=== PATIENT | male | born 1940 | race Caucasian/White ===

== ENCOUNTER → 2024-08-29 14:41 | Outpatient (REF) | payer OTHER, SELFPAY | LOC: HWRCS 14:41 | PROVIDERS: ATTENDING PHYSICIAN Internal Medicine Cardiovascular Disease; FAMILY PHYSICIAN Physician Assistant Medical | DX: R94.31 Abnormal electrocardiogram [ECG] [EKG] (principal) | CPT/HCPCS: 93306 ==

== ENCOUNTER 2024-09-10 06:20 | Day surgery (SDC) | payer OTHER, SELFPAY ==
[2024-08-21 13:07] VITALS: BMI 30.5
[2024-08-21 14:30] LABS: Hemoglobin 16.7 g/dL (13.0-18.0); Mean Corp Hgb Conc. 34.1 g/dL (33.0-37.0); Mean Corpuscular Hgb 29.7 pg (27.0-31.0); Mean Corpuscular Volume 87.2 fL (80.0-94.0); Mean Platelet Volume 10.5 fL (7.4-10.4); Platelet Count 206 10^3/uL (130-400); Red Blood Cell Count 5.62 10^6/uL (4.70-6.10); Red Cell Dist. Width 13.9 % (11.5-14.5); White Blood Cell Count 10.7 10^3/uL (4.8-10.8)
[2024-08-21 14:43] LABS: ALT (SGPT) 22 U/L (0-50); AST (SGOT) 23 U/L (17-59); Albumin 4.3 g/dl (3.5-5.0); Alkaline Phosphatase 71 U/L (38-126); Blood Urea Nitrogen 20 mg/dl (9-20); Calcium 10.1 mg/dl (8.4-10.2); Carbon Dioxide 27 mmol/L (22-30); Chloride 104 mmol/L (98-107); Estimated Creatinine Clearance 70 ml/min; Glucose 85 mg/dl (70-99); Potassium 4.6 mmol/L (3.5-5.1); Sodium 141 mmol/L (135-145); Total Bilirubin 0.4 mg/dl (0.2-1.3); Total Protein 6.4 g/dl (6.3-8.2); eGFR > 60.00
[2024-08-22 07:34] LABS: Glycohemoglobin (HgbA1c) 5.4 % (4.0-5.6)
--- NOTE | 2024-08-27 12:03 | VNURNOTE ---
Patient is scheduled for an elective L TKA on 09/10/[address] Mo- he is a same day patient. Spoke with patient prior to surgery. Introduced role of [facility] liaison.
Patient reports that he lives with his in a 1 story home.
There are 2 steps to enter
He has a cane and rolling walker.
He had [facility] services after his prior [facility].
PCP is Dr Chandra Montero
Discussed orthopedic program and post surgical plans. Advised patient to bring rolling walker day of surgery.
Reviewed that he will have [facility] services initially and will then start outpatient PT.
Patient selects [facility] for his home care needs and will go to PT at [facility] for outpatient PT- appt scheduled for 09/13.
[facility] referral placed in [facility].
Patient is in agreement with plan and states that his will be home with him.
Plan: [facility] nursing and PT per [facility] joint protocol then outpt PT at [facility] on 09/13
[2024-09-10] VITALS (12 sets, daily range): BP systolic 116–163; BP diastolic 53–86; PULSE 86; O2SAT 98; BMI 30.5
[2024-09-10] MEDS: CELEBREX 200 MG PO (07:13)
[2024-09-10] MEDS: TYLENOL 650 MG PO ×2 (07:14→13:15)
[2024-09-10] MEDS: ANCEF 5 IV (12:29)
== END 2024-09-10 13:17 | disposition home or self-care (01) ==
LOC: SDS 06:20
PROVIDERS: ATTENDING PHYSICIAN Specialist; FAMILY PHYSICIAN Physician Assistant Medical
DX: M17.12 Unilateral primary osteoarthritis, left knee (principal); M06.9 Rheumatoid arthritis, unspecified
CPT/HCPCS: 27447; 36415; 73560; 80053; 83036; 85027; 87070; 93005; 97116; 97162; C1713; C1776

== ENCOUNTER 2025-02-24 00:17 | Emergency (ER) | payer OTHER, SELFPAY ==
[2025-02-24 00:22] VITALS: BP 133/60
--- NOTE | 2025-02-24 01:13 | ED.GENMED ---
History of Present Illness
General
Chief Complaint: Fall
Source: patient
Exam Limitations: none
Time Seen by Provider: 02/24/25 00:40
History of Present Illness
History of Present Illness:
84-year-old male not anticoagulated presents after fall. He fell hitting the back of his head on the sidewalk. He really denies any headache or neck pain. He notes some scrapes to his elbows. He was noted to have a laceration to the posterior
scalp and was sent here for evaluation. No loss of conscious. No other complaints
Past History
Past History
ED Past Medical History: Other (Pneumo); Negative Asthma, HTN, Hypercholesterolemia or NIDDM
ED Past Surgical History: Appendectomy and Orthopedic (Right hip replacement, R knee replacement)
Social History
Tobacco: Smoker
Alcohol: Daily
Personal:
Living: with family
Phy Exam
Physical Exam
Physical Exam:
General: Well-appearing male no acute respiratory distress HEENT normocephalic
Laceration right posterior scalp measuring 3 cm curvilinear and fashion. Pupils equal round reactive to light TMs normal no raccoon eyes
Musculoskeletal exam: The spine is nontender good range of motion all extremities
Heart: Regular rate and rhythm
Course
Orders/Labs/Results
Orders:
Orders
02/24/25 00:38
CT Cervical Spine W/o Iv Contr Urgent
Comment:
Reason For Exam: fall
CT Head W/o Iv Contrast Urgent
Comment:
Reason For Exam: fall
Vital Signs
Initial and Last Documented VS:
Initial Vital Signs
Temp Pulse Resp BP Pulse Ox
97.5 F 94 20 133/60 95
02/24/25 00:22 02/24/25 00:22 02/24/25 00:22 02/24/25 00:22 02/24/25 00:22
Last Documented Vital Signs
Temp Pulse Resp BP Pulse Ox
97.5 F 94 20 133/60 95
02/24/25 00:22 02/24/25 00:22 02/24/25 00:22 02/24/25 00:22 02/24/25 00:22
MDM/Problems Addressed
Differential Diagnosis Includes:
Fall with head strike and laceration. Laceration was irrigated with saline and anesthetized with 1% lidocaine with epinephrine. 4 skin casey were required to close the laceration. CT of the head and cervical spine pending
*Critical Care Note
Total Time (30-74mins, 75-104mins- exclusive of procedures): Not Applicable
Update Note
Update Note:
Official CAT scan report not available at this time however patient and family expressed her desire to go home. They do not want to wait for the official read. I examined the CAT scans I do not see any obvious intracranial hemorrhage or cervical
fracture
ED Attending Note
-
Portions of this chart may have been created with voice recognition software.� Occasional wrong word or��sound alike� substitutions may have occurred due to the inherent limitations of voice recognition software.
Discharge Plan
Departure
Patient Disposition: Home (Routine Discharge)
Date of Disposition: 02/24/25
Time of Disposition: 02:26
Patient with high blood pressure during this ER visit?: No
Discharge Problem:
Laceration
Instructions: Laceration Repair With Casey (DC)
Prescriptions:
No Action
acetaminophen 500 mg capsule
1,000 mg PO Q6H MDD 4000mg PRN (Reason: Pain) Qty: 60 0RF
aspirin 325 mg tablet
325 mg PO DAILY Qty: 30 0RF
cefadroxil 500 mg capsule
500 mg PO BID Qty: 14 0RF
dexamethasone 4 mg tablet
4 mg PO BID Qty: 7 0RF
docusate sodium [Colace] 100 mg capsule
100 mg PO BID Qty: 14 0RF
celecoxib [Celebrex] 100 mg capsule
100 mg PO BID Qty: 30 0RF
ondansetron 4 mg tablet,disintegrating
4 mg PO Q8H Qty: 20 0RF
oxycodone 5 mg tablet
5 mg PO Q6H PRN (Reason: Pain) Qty: 30 0RF
sennosides [Senokot] 8.6 mg tablet
8.6 mg PO BID PRN (Reason: Constipation) Qty: 14 0RF
Referrals:
Tien Hightower MD [Family Provider] -
Activity Restrictions/Additional Instructions:
As discussed, your CAT scan was not officially read by the radiologist at this time however it appears that there is no obvious acute finding. Please have casey removed in 7 days. You should receive a call if your CAT scan shows otherwise
Interventions
Interventions:
*Risk Screen - Suicide Last Done: 02/24/25 00:22
*General Assessment Last Done: 02/24/25 00:22
*Neglect/Abuse Screening Last Done: 02/24/25 00:22
*ED- Fall Risk Assessment Last Done: 02/24/25 00:22
*ED COVID-19 Vaccine History Last Done: 02/24/25 00:22
ED-Musculoskeletal Assessment Last Done: 02/24/25 00:45
ED- Neurological Assessment Last Done: 02/24/25 00:45
ED-Skin Assessment Last Done: 02/24/25 00:45
Discharge Date and Time
Print Language: [id number]
== END 2025-02-24 02:40 | disposition home or self-care (01) ==
LOC: EMR 00:17
PROVIDERS: EMERGENCY PHYSICIAN Emergency Medicine; FAMILY PHYSICIAN Internal Medicine
DX: S01.01XA Laceration without foreign body of scalp, initial encounter (principal); W10.1XXA Fall (on)(from) sidewalk curb, initial encounter
CPT/HCPCS: 12002; 99284; 70450; 72125